=== PATIENT | female | born 1980 | race Caucasian/White ===

== ENCOUNTER 2016-04-27 16:59 | Outpatient (CLI) | payer OTHER | END 2016-04-27 17:00 | disposition home or self-care (01) | DX: R19.09 Other intra-abdominal and pelvic swelling, mass and lump (principal) ==

== ENCOUNTER 2016-04-29 13:05 | Outpatient (CLI) | payer OTHER | END 2016-04-29 13:06 | disposition home or self-care (01) | DX: O02.1 Missed abortion (principal) ==

== ENCOUNTER 2016-05-09 14:56 | Outpatient (CLI) | payer OTHER | END 2016-05-09 14:57 | disposition home or self-care (01) | DX: Z01.812 Encounter for preprocedural laboratory examination (principal); O02.1 Missed abortion ==

== ENCOUNTER 2016-05-10 11:59 | Day surgery (SDC) | payer OTHER ==
--- NOTE | 2016-05-10 12:05 | Ultrasound Report ---
TRANSVAGINAL PELVIC ULTRASOUND: 05/10/2016 CLINICAL INDICATION: Missed . COMPARISON: 04/27/2016 TECHNIQUE: Transvaginal imaging of the pelvis was performed. FINDINGS: The uterus is anteverted, measuring 9.5 x 5.5 x 4.8 cm. The abnormal material in the fundal portion of the endometrium has decreased in bulk , measuring 1.5 cm in thickness (previously 2.7 cm thick). No definite myometrial lesion is identified at this time. The ovaries are now unremarkable , with the right measuring 3.1 x 2.0 x 1.5 cm and the left measuring 2.8 x 2.6 x 1.9 cm. The previously noted central cyst in the left ovary has resolved. No free fluid. IMPRESSION: INTERVAL DECREASE IN THICKNESS OF THE FUNDAL ENDOMETRIUM, NOW MEASURING 1.5 CM (PREVIOUSLY 2.7 CM). RESULTS DISCUSSED WITH DR. ALCARAZ ON 05/10/2016 AT 11:45 A.M. JOB #: [id number] EXT JOB #: [id number] [place]
[2016-05-10] MEDS ORDERED: LACTATED RINGERS 1,000 ML IV ONE ×3 (12:06→14:22)
[2016-05-10] MEDS ORDERED: ceFAZolin 2 GM/50 ML 50 ML IV ONE (12:20)
[2016-05-10] MEDS ORDERED: BUPIVACAINE 0.25% PF 30 ML VIAL SUBQ ONE (12:39)
[2016-05-10] MEDS ORDERED: LIDOCAINE-MPF 2% 5 ML VIAL IM ONE (12:56)
[2016-05-10] MEDS ORDERED: MIDAZOLAM 2 MG/2 ML VIAL IVP ONE (12:56)
[2016-05-10] MEDS ORDERED: fentaNYL 100 MCG/2 ML VIAL IVP ONE (12:56)
[2016-05-10] MEDS ORDERED: KETOROLAC 30 MG/ML VIAL IVP ONE (12:56)
[2016-05-10] MEDS ORDERED: METHYLERGONOVINE 0.2 MG/ML AMP IVP ONE (12:56)
[2016-05-10] MEDS ORDERED: METOCLOPRAMIDE 10 MG/2 ML VIAL IVP ONE (12:56)
[2016-05-10] MEDS ORDERED: PROPOFOL 200 MG/20 ML VIAL IVP ONE (12:56)
[2016-05-10 15:12] VITALS: BP 118/83
--- NOTE | 2016-05-11 02:33 | OPERATIVE REPORT ---
DATE OF SURGERY: 05/10/2016 00:00:00 PREOPERATIVE DIAGNOSIS: Missed . POSTOPERATIVE DIAGNOSIS: Retained products of conception. NAME OF PROCEDURE: Hysteroscopy with D and Sharif. SURGEON: Duane Wynne MD. ANESTHESIA: Monitored anesthesia care with paracervical block. FINDINGS: Uterus sounded to 9 cm. There was tissue tightly adhered to the frontal anterior portion of the uterus. The corners appeared to be free of disease. ESTIMATED BLOOD LOSS: 250 mL. SPECIMENS TO PATHOLOGY: Products of conception. PROCEDURE: Following adequate IV sedation, the patient was placed in the supine position in Javon stirrups. A time-out was performed, at which time the patient was identified, as well as ALLERGY TO AMOXICILLIN. She was then prepped and draped in the usual fashion. The speculum was placed in the vagina. Cervix visualized, grasped with single-toothed tenaculum. At this point, 10 mL of 0.25 % Marcaine were injected in both uterosacral ligaments. Care was taken to aspirate every 2 mL to ascertain whether there was any intravascular injection. None was noted. At this point, the uterus was sounded to 9 cm and then the cervix was progressively dilated up to 7 mm. A hysteroscope was introduced and there was evidence of tissue, which appeared to be adhered to the anterior portion of the uterus. At this point, suction catheter was introduced, which was noted to be 8 mm, suction applied and then this was rotated and gently withdrawn. A small fragment of necrotic tissue was removed at this time. This was introduced a second time. The endometrial cavity was then sharply curetted in all 4 quadrants. The hysteroscope was reintroduced, and there was evidence of continued tissue appearing to be in the fundal anterior portion of the uterus. Polyp forces were then employed and scant tissue was removed. At this point, the suction catheter was once again introduced and minimal to no tissue was removed. The hysteroscope was reintroduced, and then there was evidence of still tissue remaining. An operative hysteroscope was then introduced with maintaining normal saline as the irrigant, and then utilizing the loop without electrical current, the top of the portion of the uterus was curetted. At this point, it appeared as though the remainder of the tissue was removed. The hysteroscope revealed no further tissue at this time. At this point, the suction catheter was introduced to remove blood and clot from the endometrial cavity. There was difficulty from bleeding at this particular time, so the patient was administered 0.2 mg of Methergine IM. The cervix was inspected, and there was no evidence of any further bleeding. The cervix was released from the single-toothed tenaculum. The patient was taken to recovery in stable condition. Sponge and needle counts were correct. JOB #: [id number] EXT JOB #:[id number] MTDD
--- NOTE | 2016-05-11 08:11 | PREOP HISTORY & PHYSICAL ---
DATE OF ADMISSION/SURGERY: 05/10/2016 IDENTIFICATION: The patient is a 35-year-old G3, P2, SAB1 female who had a miscarriage back in er 2015. She has done a test, which was noted to be positive. She had a quantitative hCG do ne in the end of April, which was 19, and repeat quant was unchanged. She has had an ultrasound, wh ich showed evidence of tissue in the uterus about 1.5 cm to 2 cm in size. She received a course of Cy totec 600 mg orally followed by 800 mg vaginally and a repeat 800 mg vaginally. This morning she pass ed some tissue about an inch in diameter. She had a repeat ultrasound this morning, which shows razia nued evidence of tissue at the apex of the uterus roughly about 2 cm in diameter. At this point, diag nosis of retained products of conception is made. I have discussed with the patient the fact that we have tried multiple modalities to spontaneously empty the uterus and have been unsuccessful. At this time, we are planning to proceed on hysteroscopy with D and C. PAST MEDICAL HISTORY: The patient denies any hypertensive, diabetic, cardiac or pulmonary disease. SURGICAL HISTORY: None. ALLERGIES: NONE KNOWN. CURRENT MEDICATIONS: Cytotec 800 mcg vaginal yesterday. HABITS: The patient denies the use of alcohol, tobacco or street or addictive drugs. FAMILY HISTORY: Positive for diabetes. REVIEW OF SYSTEMS Noncontributory at this time. PHYSICAL EXAMINATION GENERAL: A well-developed, well-nourished, white female in no acute distress. HEENT: Pupils are equal, round. Extraocular muscles intact. HEART: Regular rate and rhythm without murmurs. LUNGS: Salazar are clear without rales or wheezes. ABDOMEN: Soft, nontender without evidence of any palpable masses. EXTREMITIES: Show no calf or CVA tenderness noted. NEUROLOGIC: The patient is alert and oriented x3. DIAGNOSTIC DATA: Transvaginal ultrasound done in radiology this morning shows evidence of retained pr oducts of conception. IMPRESSION: Retained products of conception, which has been unsuccessfully treated with Cytotec x3. PLAN: We will perform sharp and suction D and C. Risks and benefits were explained to the patient, in cluding those but not limited to bleeding, infection, injury to pelvic organs, which include the uter us, tubes, ovaries, bowel, bladder and ureters. She is aware of the potential for DVT with PE, as wel l as postoperative adhesions, which could cause pain, bowel obstruction, infertility. JOB #: [id number] EXT JOB #:[id number]
== END 2016-05-10 12:00 | disposition home or self-care (01) ==
LOC: SDS 11:59
PROVIDERS: ATTEND Obstetrics & Gynecology
PROC: 0UDB8ZZ Extraction of Endometrium, Via Natural or Artificial Opening Endoscopic (ICD-10-PCS; principal; 2016-05-10 12:15)
DX: O02.1 Missed abortion (principal); Z88.1 Allergy status to other antibiotic agents
CPT/HCPCS: 58558; 76830; J0690; J7120; 88305

== ENCOUNTER 2017-01-01 10:59 | Outpatient (CLI) | payer OTHER ==
--- NOTE | 2017-01-02 09:19 | XRAY Report ---
THREE-VIEW BILATERAL HANDS: 01/01/2017 CLINICAL INDICATION: Pain. FINDINGS: AP, lateral, oblique views of the bilateral hands demonstrate no evidence of fracture or d islocation. The joint spaces are preserved. No radiopaque foreign body is seen in the soft tissues. IMPRESSION: NORMAL BILATERAL HANDS. JOB #: [id number] EXT JOB #:[id number]
== END 2017-01-01 11:00 | disposition home or self-care (01) ==
LOC: DI 10:59
PROVIDERS: ATTEND Physician Assistant
DX: M79.642 Pain in left hand (principal); M79.641 Pain in right hand

== ENCOUNTER 2020-01-27 13:00 | Outpatient (CLI) | payer OTHER | END 2020-01-27 13:01 | disposition home or self-care (01) | LOC: COV 13:00 | PROVIDERS: ATTEND Family Medicine | DX: R05 Cough (principal); R53.83 Other fatigue; J02.9 Acute pharyngitis, unspecified; R09.81 Nasal congestion; Z20.828 Contact with and (suspected) exposure to other viral communicable diseases ==

== ENCOUNTER 2020-10-15 13:55 | Outpatient (CLI) | payer OTHER ==
--- NOTE | 2020-10-15 16:15 | XRAY Report ---
PROCEDURE: Forearm LT INDICATIONS: FOREARM MASS TECHNIQUE: 2 views of the forearm were acquired. COMPARISON: None FINDINGS: A metallic bead marker was placed in the patient's area of interest along the proximal aspect of the extensor surface overlying the ulna. There is no radiographic abnormality subjacent to the marker. No suspicious lytic or blastic osseous lesion. No periosteal reaction. No fracture. No radiopaque forei gn body or acute soft tissue finding. IMPRESSION: No abnormality at the patient's area of concern. An ultrasound or MRI could be considered if there is continued concern for an underlying mass. Reviewed by: Kristian Owen MD on 10/15/2020 4:14 PM PDT Approved by: Kristian Owen MD on 10/15/2020 4:14 PM PDT Station ID: [id number]
== END 2020-10-15 13:56 | disposition home or self-care (01) ==
LOC: DI 13:55
PROVIDERS: ATTEND Physician Assistant Medical
DX: R22.32 Localized swelling, mass and lump, left upper limb (principal)

== ENCOUNTER 2020-11-19 12:04 | Outpatient (CLI) | payer OTHER ==
[2020-11-19 12:38] LABS: ALBUMIN 4.4 g/dL (3.2-5.5); ALBUMIN/GLOBULIN RATIO 1.6 (1.0-2.2); BILIRUBIN,TOTAL 0.6 mg/dL (0.2-1.0); CALCIUM 9.6 mg/dL (8.5-10.3); CREATININE 0.8 mg/dL (0.4-1.0); POTASSIUM 3.4 mmol/L (3.5-5.0); TOTAL PROTEIN 7.1 g/dL (6.7-8.2)
== END 2020-11-19 12:05 | disposition home or self-care (01) ==
LOC: LAB 12:04
PROVIDERS: ATTEND Physician Assistant
DX: R11.0 Nausea (principal); R19.7 Diarrhea, unspecified
CPT/HCPCS: 36415; 80053

== ENCOUNTER 2023-04-06 08:00 | Outpatient (CLI) | payer OTHER ==
[2023-04-06 16:27] LABS: BILIRUBIN,URINE NEGATIVE (NEGATIVE); GLUCOSE, URINE (UA) NEGATIVE (NEGATIVE); KETONES,URINE (UA) NEGATIVE (NEGATIVE); LEUKOCYTE ESTERASE, URINE NEGATIVE (NEGATIVE); NITRITE,URINE NEGATIVE (NEGATIVE); OCCULT BLOOD,URINE NEGATIVE (NEGATIVE); PROTEIN,URINE NEGATIVE (NEGATIVE); UROBILINOGEN,URINE 1 (NORMAL) E.U./dL (NORMAL)
[2023-04-06 16:29] LABS: CLARITY,URINE CLOUDY (CLEAR)
[2023-04-06 16:36] LABS: WBC,URINE 0-3 /HPF (0-5)
[2023-04-06 16:37] LABS: AMORPHOUS SEDIMENT,UR Marked /LPF; BACTERIA,URINE None Seen /HPF (None Seen); RBC,URINE None Seen /HPF (0-5); SQUAMOUS EPITHELIAL CELL,UR RARE Squamous (<= Few)
== END 2023-04-06 23:59 | disposition home or self-care (01) ==
LOC: LAB.WC 08:00
PROVIDERS: ATTEND Nurse Practitioner
DX: R30.0 Dysuria (principal)
CPT/HCPCS: 81001; 87086